=== PATIENT | female | born 1980 | race Caucasian/White ===

== ENCOUNTER 2017-06-08 17:24 | Emergency (ER) | payer OTHER ==
--- NOTE | 2017-06-08 18:03 | RAD ---
CHEST 1 VIEW: Date: 06/08/17 HISTORY: Cough. COMPARISON: None. FINDINGS: There are surgical clips in the mediastinum. There is blunting of the left lateral costophrenic sulcu s. No focal air space consolidation. IMPRESSION: 1. Mild blunting left lateral costophrenic sulcus may be sequelae of small effusion. 2. Postsurgical change of mediastinum. 3. Scarring with bronchiectasis in the left upper lobe. POS: [facility]
== END 2017-06-08 18:59 | disposition home or self-care (01) ==
LOC: ERS 17:24
DX: J20.9 Acute bronchitis, unspecified (principal); E10.9 Type 1 diabetes mellitus without complications; E03.9 Hypothyroidism, unspecified; K21.9 Gastro-esophageal reflux disease without esophagitis; E78.5 Hyperlipidemia, unspecified; J45.909 Unspecified asthma, uncomplicated; F31.9 Bipolar disorder, unspecified; F17.210 Nicotine dependence, cigarettes, uncomplicated; Z85.71 Personal history of Hodgkin lymphoma
CPT/HCPCS: 71010; 93005; 94640; J7620

== ENCOUNTER 2017-11-20 08:35 | Outpatient (CLI) | payer OTHER ==
--- NOTE | 2017-11-20 11:51 | CT ---
ABDOMEN AND PELVIS CT WITH CONTRAST: INDICATIONS: Hernia. FINDINGS: There is a large fat-containing hernia with a relative wide neck, centered at the midline of the vent ral abdomen, near the umbilicus. Slight inflammation of the herniated fat is seen. No herniation of bowel. There is no acute abnormality of the solid abdominal viscera. An exophytic cyst is seen at the medial left kidney. Prior cholecystectomy. There is no evidence of bowel obstruction. There is moderate retained fecal material of the colon. Moderate distention of unopacified urinary bladder i s present. There is heterogeneity of the uterus, which may be physiologic. A peripherally calcified nodule of the right gluteal region, in addition to multiple additional punctate calcific densities o f the gluteal regions bilaterally favor calcified dermal granulomas. There is osseous degenerative c hange, notably at the lumbosacral junction. IMPRESSION: Large, relative wide-necked, fat-containing hernia with mild inflammatory fat stranding, centered at the ventral low abdomen, near the umbilicus. No associated herniation of bowel or associated bowel o bstruction. POS: [facility]
[2017-11-20] MEDS ORDERED: Iopamidol 370 76% 100 ML VIAL ONE (13:21)
== END 2017-11-20 08:36 | disposition home or self-care (01) ==
LOC: CT 08:35
PROVIDERS: ATTEND Surgery
DX: K43.9 Ventral hernia without obstruction or gangrene (principal)
CPT/HCPCS: 74177

== ENCOUNTER 2017-12-05 09:24 | Outpatient (CLI) | payer OTHER ==
[2017-12-05 11:07] LABS: #Basophils 0.1 thou/uL (0.0-0.2); #Eosinphils 0.1 thou/uL (0.0-0.7); #Lymphocytes 2.3 thou/uL (1.20-3.40); #Monocytes 0.5 thou/uL (0.11-0.59); #Neutrophils 7.5 thou/uL (1.40-6.50); %Basophils 0.6 % (0.0-1.0); %Lymphocytes 21.6 % (21.0-51.0); %Monocytes 4.6 % (0.0-10.0); %Neutrophils 72.2 % (42.0-75.0); Hemoglobin 13.1 g/dL (12.0-16.0); Mean Corpuscular HGB CONC 34.5 g/dL (32.0-36.0); Mean Corpuscular Hemoglobin 30.4 pg (27.0-31.0); Mean Corpuscular Volume 88.2 fl (81.0-99.0); Mean Platelet Volume 8.5 fL (7.4-10.4); Platelet Count 279 thou/uL (130-400); RBC Distribution Width 14.7 % (11.5-14.5); White Blood Cell (WBC) Count 10.4 thou/uL (4.8-10.8)
[2017-12-05 11:24] LABS: Anion Gap 8 mmol/L (10-20); BUN (Urea Nitrogen) 10 mg/dL (7.0-18.7); Calc. Creatinine Clearance 0 mL/min (70-130); Calcium 8.8 mg/dL (7.8-10.44); Carbon Dioxide 24 mmol/L (22-29); Chloride 108 mmol/L (98-107); Estimated GFR-MDRD Greater than 90; Glucose 107 mg/dL (70-105); Potassium 3.9 mmol/L (3.5-5.1); Sodium 136 mmol/L (136-145)
== END 2017-12-05 09:25 | disposition home or self-care (01) ==
LOC: LABBT 09:24
PROVIDERS: ATTEND Surgery
DX: Z01.812 Encounter for preprocedural laboratory examination (principal); K43.9 Ventral hernia without obstruction or gangrene
CPT/HCPCS: 80048; 85025

== ENCOUNTER 2017-12-09 09:51 | Day surgery (SDC) | payer OTHER ==
[2017-12-05 09:58] VITALS: BMI 28.5
[~2017-12-09 09:51] MED LIST: Lidocaine 1% PF 5 ML VIAL ONE; Ondansetron HCl/PF 4 MG/2 ML Vial ONE; PROPOFOL 200 MG/20 ML VIAL ONE
[2017-12-09] MEDS ORDERED: methylPREDNISolone Sod Succ/PF 125 MG/2 ML VIAL ONE (10:12)
[2017-12-09] MEDS ORDERED: Albuterol Sulfate 2.5 mg/3 ml Neb NEB SCH (10:30)
[2017-12-09] MEDS ORDERED: Albuterol Sulfate 2.5 mg/3 ml Neb ONE (10:33)
[2017-12-09] MEDS ORDERED: Sodium Chloride 0.9% 10 ML ONE (10:40)
[2017-12-09] MEDS ORDERED: Sodium Chloride 0.9% 0 ML ONE (10:40)
[2017-12-09] MEDS ORDERED: CEFAZOLIN/Water 2 GM/20 ML SYRINGE ONE (11:21)
[2017-12-09] MEDS ORDERED: Fentanyl 100 MCG/2 ML VIAL ONE ×3 (11:34→15:52)
[2017-12-09] MEDS ORDERED: Midazolam HCl 2 mg/2 ml Vial ONE (11:34)
[2017-12-09] MEDS ORDERED: Bupivacaine/Epinephrine 0.25% 30 ML VIAL ONE (11:57)
--- NOTE | 2017-12-14 22:16 | PDOC.OP ---
Operative Note - Operative Note Operative Note: PROCEDURE: Laparoscopic repair of recurrent ventral incisional hernia with mesh DATE OF PROCEDURE: 12/10/27 SURGEON: Jeanine Astudillo M.D. PREOPERATIVE DIAGNOSES: Recurrent ventral incisional hernia, incarcerated POSTOPERATIVE DIAGNOSIS: Recurrent ventral incisional hernia, incarcerated HISTORY: Patient is status post open ventral hernia repair near the umbilicus without mesh at another facility. She presented with recurrent ventral hernia at the site of her previous repair which was only partially reducible. On CT scan this contained only omentum. Recommendation was made to proceed with laparoscopic repair due to recurrent nature of the hernia and concern for adjacent defects due to previous . PROCEDURE IN DETAIL: After informed consent was obtained and appropriate preoperative antibiotics were administered the patient was taken to the operating room she was placed in supine position and general endotracheal anesthesia was administered. She was prepped and draped in a standard sterile fashion and local anesthesia was infused to the skin and subcutaneous tissues in the right subcostal position. The fascia was elevated and a Veress needle placed into the abdominal cavity without difficulty. Opening pressure was less than 5 and current dissected as easily insufflated to an intra-abdominal pressure 15 which the patient tolerated well. The Veress needle was withdrawn and a [place] Belt port advanced under direct laparoscopic vision into the abdominal cavity. The abdominal cavity was carefully examined and no evidence of Veress needle or of trocar injury was seen. The patient was noted to have fairly extensive omental adhesions at the hernia site but no other significant adhesions and no visible bowel near the hernia. Additional dissecting trochars were placed in the left and right lateral abdomen under direct laparoscopic vision and the omental adhesions carefully taken down using LigaSure. The patient was found to have extensive omental adhesions within the hernia sac which were able to be mostly dissected free by inverting the hernia sac. Some of the omentum tore remaining within the hernia sac however. Once all the omental adhesions were taken down from the anterior abdominal wall, the remaining omentum within the hernia sac was moved by dividing the remaining attachments and the devascularized omentum tunneled through the trocar and discarded. The omentum which had been previously in the hernia sac was examined and some areas were found to be devascularized and these were resected and discarded as well. Attention was then turned to repair of the hernia. No other fascial defects were noted in the vicinity of the hernia. The margins of the hernia were marked on the skin and measured. The defect was found to be 5 x 6 cm so an 11 x 14 cm mesh was chosen. Transfascial sutures were placed superiorly inferiorly and each lateral margin. Appropriate placement of mesh was marked on the abdominal wall. One of the 5 mm ports was switched out to a 12 mm port and the mesh was rolled and placed through this into the abdominal cavity. Mesh was then unrolled and carefully positioned with the nonstick surface facing the bowel. GraNee needle was used to draw out the transfascial fixation sutures superiorly, inferiorly and each lateral edge. These were secured and cut. Secure strap was then used to fix the mesh circumferentially with tacks every centimeter. This provided excellent coverage of the hernia. The 12 mm trocar was removed and the fascial defects closed with 0 Vicryl suture on a GraNee needle under direct laparoscopic vision with excellent technical result. The right lower quadrant trocar had been removed and replaced several times during the case and no bleeding had been noted at the site so the laparoscope was moved to this position and the subcostal trocar removed and hemostasis verified. The gas was then allowed to desufflate through the right lower quadrant trocar which was then removed. Additional local anesthesia was infused and 4-0 subcuticular sutures used to close the trocar sites. Dermabond dressings were placed at trocar sites as well as transfascial suture sites. Estimated blood loss was minimal. There were no complications. There were no specimens.
== END 2017-12-09 17:15 | disposition home or self-care (01) ==
LOC: SDC 09:51
PROVIDERS: ATTEND Surgery
PROC: 0WUF4JZ Supplement Abdominal Wall with Synthetic Substitute, Percutaneous Endoscopic Approach (ICD-10-PCS; principal; 2017-12-09)
DX: K43.0 Incisional hernia with obstruction, without gangrene (principal); Z91.040 Latex allergy status; Z91.041 Radiographic dye allergy status; Z88.8 Allergy status to other drugs, medicaments and biological substances; Z98.890 Other specified postprocedural states
CPT/HCPCS: 36416; 94640; 96374; J2001; J2250; J2405; J2704; J2930; J3010; J7611

== ENCOUNTER 2018-01-14 01:43 | Emergency (ER) | payer OTHER ==
[2018-01-14] MEDS ORDERED: Ketorolac Tromethamine 30 MG/ML VIAL ONE (02:41)
[2018-01-14 02:56] LABS: #Basophils 0.1 thou/uL (0.0-0.2); #Eosinphils 0.1 thou/uL (0.0-0.7); #Lymphocytes 3.3 thou/uL (1.20-3.40); #Monocytes 0.8 thou/uL (0.11-0.59); #Neutrophils 9.8 thou/uL (1.40-6.50); %Basophils 0.7 % (0.0-1.0); %Eosinophils 0.9 % (0.0-10.0); %Lymphocytes 23.1 % (21.0-51.0); %Monocytes 5.6 % (0.0-10.0); %Neutrophils 69.7 % (42.0-75.0); Hemoglobin 14.1 g/dL (12.0-16.0); Mean Corpuscular HGB CONC 34.5 g/dL (32.0-36.0); Mean Corpuscular Hemoglobin 29.7 pg (27.0-31.0); Mean Corpuscular Volume 86.1 fL (78.0-98.0); Mean Platelet Volume 8.4 fL (7.4-10.4); Platelet Count 277 thou/uL (130-400); RBC Distribution Width 14.4 % (11.5-14.5); Red Blood Cell (RBC) Count 4.74 mill/uL (4.20-5.40); White Blood Cell (WBC) Count 14.1 thou/uL (4.8-10.8)
[2018-01-14 02:58] LABS: Pregnancy Test - Urine (BHCG) Negative (Negative); Pregu Control Background? CLEAR/WHITE (CLR/WHITE); Pregu Control Bar Appear? YES (CONTROL BAR)
[2018-01-14 02:59] LABS: Bilirubin Negative (Negative); Blood, Urine Small (Negative); Clarity CLEAR (Clear); Glucose, Urine (Dipstick) Negative (Negative); Leukocyte Negative (Negative); Nitrite Negative (Negative); Protein, Urine (Dipstick) Negative (Neg-Trace); Specific Gravity 1.004 (1.002-1.036); Specific Gravity, Urine 1.004 (1.002-1.036); Urobilinogen 0.2 mg/dL (0.2-1.0)
[2018-01-14 03:02] LABS: Pathc Cast-AUWi Flag 0.14 (0-2.49)
[2018-01-14] MEDS ORDERED: methylPREDNISolone Sod Succ/PF 125 MG/2 ML VIAL ONE (03:12)
[2018-01-14] MEDS ORDERED: diphenhydrAMINE 50 MG/ML VIAL ONE (03:12)
[2018-01-14] MEDS ORDERED: Famotidine/PF 20 mg/2ml Vial SLOW IVP SCH (03:15)
[2018-01-14 03:21] LABS: ALT (SGPT) 12 U/L (8-55); AST (SGOT) 15 U/L (5-34); Albumin 4.6 g/dL (3.5-5.0); Alkaline Phosphatase 96 U/L (40-150); Anion Gap 14 mmol/L (10-20); BUN (Urea Nitrogen) 6 mg/dL (7.0-18.7); Bacteria/HPF Rare-Few HPF (None Seen); Bilirubin, Total 0.6 mg/dL (0.2-1.2); Calc. Creatinine Clearance 0 mL/min (70-130); Calcium 10.2 mg/dL (7.8-10.44); Carbon Dioxide 25 mmol/L (22-29); Chloride 98 mmol/L (98-107); Estimated GFR-MDRD 79; Globulin 4.1 g/dL (2.4-3.5); Glucose 117 mg/dL (70-105); Hyaline Casts/LPF NONE SEEN LPF (0-3 Hyaline); Lipase 64 U/L (8-78); Potassium 3.1 mmol/L (3.5-5.1); Protein, Total 8.7 g/dL (6.0-8.3); RBC/HPF 0-3 HPF (0-3); Sodium 134 mmol/L (136-145); Squamous Epithelial 0-3 HPF (0-3); WBC/HPF 0-3 HPF (0-3)
[2018-01-14] MEDS ORDERED: Ondansetron ODT 8 MG TAB ONE (03:48)
[2018-01-14] MEDS ORDERED: Fentanyl 100 MCG/2 ML VIAL ONE (06:46)
--- NOTE | 2018-01-14 08:31 | ULT ---
PRELIMINARY REPORT/[facility]/EM[facility] AFTER-HOURS PROCEDURE US Pelvis Complete, Transabdominal CLINICAL HISTORY: 37 years old, female; Signs and symptoms; Other: Spotty hematuria; Patient HX: HX: Irregular periods, HX: Lymphoma TECHNIQUE: Real-time transabdominal pelvic ultrasound (complete) with image documentation. COMPARISON: No relevant prior studies available. FINDINGS: The uterus measures 7.5 cm in length. There is no visible focal uterine mass. There is no intrauterine fluid. Endometrium appears mildly thickened, measuring up to 15 mm. There is no free pelvic fluid. The right ovary is enlarged, measuring 69 x 24 x 26 mm. There are two relatively simple appearing cysts involving the right ovary, measuring 32 x 23 x 31 mm, and 25 x 15 x 19 mm. These may still represent physiologic cysts, other etiologies are not excluded. As clinically directed, follow up in one to three months may be useful to evaluate for resolution of a physiologic cyst, and to guard against a persistent/enlarging lesion/neoplasm. Blood flow detected in the right ovary. The left ovary was not visualized at this time. The urinary bladder was not completely evaluated/imaged at this time. IMPRESSION: Two relatively simple appearing cysts involving the right ovary, see above discussion. Mildly thicken ed endometrium, details above. Other details discussed above. US Pelvis, Transvaginal TECHNIQUE: Real-time transvaginal pelvic ultrasound (complete) with image documentation. Transvaginal imaging wa s used for better evaluation of the endometrium and adnexa. COMPARISON: No relevant prior studies available. FINDINGS: The uterus measures 7.5 cm in length. There is no visible focal uterine mass. There is no intrauterine fluid. Endometrium appears mildly thickened, measuring up to 15 mm. There is no free pelvic fluid. The right ovary is enlarged, measuring 69 x 24 x 26 mm. There are two relatively simple appearing cysts involving the right ovary, measuring 32 x 23 x 31 mm, and 25 x 15 x 19 mm. These may still represent physiologic cysts, other etiologies are not excluded. As clinically directed, follow up in one to three months may be useful to evaluate for resolution of a physiologic cyst, and to guard against a persistent/enlarging lesion/neoplasm. Blood flow detected in the right ovary. The left ovary was not visualized at this time. The urinary bladder was not completely evaluated/imaged at this time. Endovaginal scanning provided better visualization/evaluation of the endometrium and ovarian/adnexal findings as discussed above. IMPRESSION: Two relatively simple appearing cysts involving the right ovary, see above discussion. Mildly thickened endometrium, details above. Other details discussed above. Thank you for allowing us to participate in the care of your patient. Dictated and Authenticated by: Hiram Silverio MD 01/14/2018 7:18 AM Central Time ([place] & [place]) PELVIC ULTRASOUND: Transabdominal and endovaginal ultrasound of pelvis performed. INDICATION: Hematuria. CT abdomen and pelvis performed earlier this morning revealed cystic mass in the right ad nexa. FINDINGS: Uterus has a normal size and appearance. The endometrial stripe is mildly prominent measured at 1.4 cm. There are at least 2 cysts in the right ovary, the largest measuring up to 3 cm and a smaller me asuring up to 2.5 cm. Color Doppler with spectral analysis demonstrates blood flow to the right ovar y. The left ovary is not visualized. IMPRESSION: 1. Thickened endometrium. 2. Two prominent right ovarian cysts. 3. The left ovary is not identified. Agree with preliminary report. POS: [facility]
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
[2018-01-14] MEDS ORDERED: ISOVUE-370 76%-LOCM 1 ML ONE (09:56)
[2018-01-14 23:43] LABS: Chlamydia by PCR Not Detected (NotDetected); GC by PCR Not Detected (NotDetected)
== END 2018-01-14 09:04 | disposition home or self-care (01) ==
LOC: ERS 01:43
DX: N76.0 Acute vaginitis (principal); E10.9 Type 1 diabetes mellitus without complications; E03.9 Hypothyroidism, unspecified; K21.9 Gastro-esophageal reflux disease without esophagitis; E78.5 Hyperlipidemia, unspecified; J45.909 Unspecified asthma, uncomplicated; G43.909 Migraine, unspecified, not intractable, without status migrainosus; F31.9 Bipolar disorder, unspecified; F17.210 Nicotine dependence, cigarettes, uncomplicated; Z79.899 Other long term (current) drug therapy
CPT/HCPCS: 70450; 70486; 74177; 76856; 80053; 81003; 81015; 81025; 82010; 83690; 85025; 87480; 87491; 87510; 87591; 87660; 94640; 96361; 96374; 96375; 96376; J1200; J1885; J2270; J2930; J3010; J7620; S0028

== ENCOUNTER 2018-05-29 09:29 | Outpatient (CLI) | payer OTHER | END 2018-05-29 09:30 | disposition home or self-care (01) | LOC: CTENTCT 09:29 | PROVIDERS: ATTEND Specialist | DX: J32.9 Chronic sinusitis, unspecified (principal) | CPT/HCPCS: 70486 ==

== ENCOUNTER 2018-06-04 10:19 | Emergency (ER) | payer OTHER ==
--- NOTE | 2018-06-04 11:58 | RAD ---
CHEST 2 VIEWS: HISTORY: Cough x 2 weeks. Bronchitis. COMPARISON: 09/18/2017. FINDINGS: Normal cardiac silhouette. The pulmonary vessels and hilum are normal. Costophrenic angles are jordon r. No consolidation or masses. No pneumothorax or osseous abnormalities. IMPRESSION: No acute cardiopulmonary process. POS: [facility]
== END 2018-06-04 11:36 | disposition home or self-care (01) ==
LOC: ERS 10:19
DX: E03.9 Hypothyroidism, unspecified (principal); J20.9 Acute bronchitis, unspecified; K21.9 Gastro-esophageal reflux disease without esophagitis; G43.909 Migraine, unspecified, not intractable, without status migrainosus; F60.3 Borderline personality disorder; Z87.891 Personal history of nicotine dependence; Z71.6 Tobacco abuse counseling; Z79.899 Other long term (current) drug therapy; Z79.4 Long term (current) use of insulin
CPT/HCPCS: 71046; 94640; 99406; J7620

== ENCOUNTER 2018-06-08 21:06 | Emergency (ER) | payer OTHER ==
[2018-06-08 23:32] LABS: Hemoglobin 14.9 g/dL (12.0-16.0); Lymphocytes 21 % (21-51); MDiff Complete? YES; Mean Corpuscular HGB CONC 33.6 g/dL (32.0-36.0); Mean Corpuscular Hemoglobin 29.1 pg (27.0-31.0); Mean Corpuscular Volume 86.6 fL (78.0-98.0); Monocytes 5 % (0-10); Neutrophil 74 % (42-75); PLT Morphology Comment Appears Adequate; Platelet Count 302 thou/uL (130-400); Red Blood Cell (RBC) Count 5.13 mill/uL (4.20-5.40); White Blood Cell (WBC) Count 20.1 thou/uL (4.8-10.8)
[2018-06-08 23:35] LABS: ALT (SGPT) 16 U/L (8-55); AST (SGOT) 13 U/L (5-34); Albumin 4.3 g/dL (3.5-5.0); Alkaline Phosphatase 66 U/L (40-150); Anion Gap 14 mmol/L (10-20); BUN (Urea Nitrogen) 20 mg/dL (7.0-18.7); Bilirubin, Total 0.3 mg/dL (0.2-1.2); Calc. Creatinine Clearance 0 mL/min (70-130); Calcium 9.6 mg/dL (7.8-10.44); Carbon Dioxide 22 mmol/L (22-29); Chloride 104 mmol/L (98-107); Estimated GFR-MDRD 54; Glucose 160 mg/dL (70-105); Protein, Total 7.3 g/dL (6.0-8.3); Sodium 137 mmol/L (136-145)
[2018-06-08 23:38] LABS: CKMB 1.2 ng/mL (0-6.6); Troponin I Less than 0.010 ng/mL (< 0.028)
[2018-06-09 00:17] LABS: Potassium 2.8 mmol/L (3.5-5.1)
[2018-06-09] MEDS ORDERED: Potassium Chloride 20 MEQ TAB ONE (00:19)
[2018-06-09 00:26] LABS: Bilirubin Negative (Negative); Blood, Urine Trace (Negative); Glucose, Urine (Dipstick) Negative (Negative); Leukocyte Negative (Negative); Nitrite Negative (Negative); Protein, Urine (Dipstick) Trace mg/dL (Neg-Trace); Specific Gravity, Urine 1.025 (1.005-1.030); Urobilinogen 0.2 mg/dL (0.2-1.0); pH, Urine 5.5 (5.0-9.0)
[2018-06-09 00:27] LABS: Clarity Clear (Clear)
[2018-06-09 00:47] LABS: Bacteria/HPF Rare-Few HPF (None Seen); Hyaline Casts/LPF 0-3 HYALINE CAST LPF (0-3 Hyaline); RBC/HPF 0-3 HPF (0-3); Squamous Epithelial 0-3 HPF (0-3); WBC/HPF 0-3 HPF (0-3)
--- NOTE | 2018-06-09 08:23 | RAD ---
FRONTAL VIEW CHEST: COMPARISON: 09/18/2017. INDICATION: Leukocytosis. FINDINGS: No consolidation, effusion, or pneumothorax, The cardiac silhouette is normal in size. Exam is stab le-appearing. IMPRESSION: No focal consolidation. POS: [facility]
== END 2018-06-09 01:21 | disposition home or self-care (01) ==
LOC: ERS 21:06
DX: E10.65 Type 1 diabetes mellitus with hyperglycemia (principal); E03.9 Hypothyroidism, unspecified; K21.9 Gastro-esophageal reflux disease without esophagitis; J45.909 Unspecified asthma, uncomplicated; G43.909 Migraine, unspecified, not intractable, without status migrainosus; F31.9 Bipolar disorder, unspecified; F60.3 Borderline personality disorder; Z87.891 Personal history of nicotine dependence; Z79.899 Other long term (current) drug therapy
CPT/HCPCS: 36415; 36416; 71045; 80053; 81003; 81015; 82553; 84484; 85025; 87086; 93005; 96360

== ENCOUNTER 2018-06-18 08:40 | Day surgery (SDC) | payer OTHER ==
[2018-06-17 11:21] VITALS: BMI 27.3
[2018-06-18] MEDS ORDERED: Oxymetazoline HCl 0.05% ( 15 ML ) ONE ×3 (09:41→11:32)
[2018-06-18] MEDS ORDERED: Lidocaine 1% w/Epinephrine 1:100K 30 ML VIAL ONE (11:31)
[2018-06-18] MEDS ORDERED: Bacitracin Zinc Ointment 30 gm TUBE ONE (11:31)
[2018-06-18] MEDS ORDERED: Ondansetron PF 4 MG/2 ML Vial ONE (11:59)
[2018-06-18] MEDS ORDERED: PROPOFOL 200 MG/20 ML VIAL ONE (11:59)
[2018-06-18] MEDS ORDERED: PHENYLEPHRINE-NS 100 MCG/ML 10 ML SYRINGE ONE ×2 (11:59→12:53)
[2018-06-18] MEDS ORDERED: Dexamethasone 20 MG/5 ML VIAL ONE (11:59)
[2018-06-18] MEDS ORDERED: Lidocaine 1% PF 5 ML VIAL ONE (11:59)
[2018-06-18] MEDS ORDERED: Glycopyrrolate 0.2 MG/ML 5 ML SYRINGE ONE (11:59)
[2018-06-18] MEDS ORDERED: Fentanyl 100 MCG/2 ML VIAL ONE ×2 (12:15→14:04)
[2018-06-18] MEDS ORDERED: HYDROcodone/Acetaminophen 5/325 mg Tablet ONE (14:56)
--- NOTE | 2018-06-24 11:54 | OP ---
DATE OF PROCEDURE: 06/18/2018 PREOPERATIVE DIAGNOSES: Bilateral chronic sinusitis, deviated septum, hypertrophied inferior turbinates, bilateral makeda bullosa. POSTOPERATIVE DIAGNOSES: Bilateral chronic sinusitis, deviated septum, hypertrophied inferior turbinates, bilateral makeda bullosa. PROCEDURES PERFORMED: Bilateral nasal endoscopy with maxillary antrostomy with removal of tissue, bilateral nasal endoscopy with total ethmoidectomy, bilateral nasal endoscopy with frontal sinusotomy, bilateral nasal endoscopy with sphenoidotomy, bilateral nasal endoscopy with resection of makeda bullosa, bilateral nasal endoscopy with submucous resection of inferior turbinates, and septoplasty. DESCRIPTION OF PROCEDURE: After consent was obtained, the patient was identified, brought to the operating room, and placed on the operating room table in the supine position. Consent was obtained, notifying the patient of the possibility of additional infections, bleeding, brain injury, and eye/orbital injury. The patient was placed on the operating room table, and general endotracheal anesthesia and intravenous access was obtained. The patient was then positioned, prepped and draped for endoscopic sinus surgery. Nasal preparation included trimming nasal vestibular hairs and spraying in topical Afrin. We then placed Afrin topical solution on nasal pledgets and strategically located them intranasally. The perinasal mucosa was injected with 1% lidocaine with 1:100,000 epinephrine in the submucoperichondrial plane of the septum, lateral nasal wall, and anterior to the uncinate. The patient was then prepped and draped in a sterile fashion and positioned for endoscopic sinus surgery. With the 0-degree endoscope, the patient underwent systematic nasal endoscopy. There were no suspicious internasal masses or lesions identified. We then focused our attention to the osteomeatal complex region under the middle turbinate. The uncinate was then identified and the extent of the uncinate was appreciated by out-fracturing the uncinate with the ball-tip probe. We then used the sickle blade to disarticulate the uncinate from the lateral nasal wall. This was then removed with straight biting and upbiting punches with the remaining shrouds of mucosa and bony septum removed with the micro-debrider. The natural os of the maxillary sinus was then identified and enlarged with the maxillary punches and back biting forceps. At this point, we then turned our attention to the contralateral side and proceeded with endoscopic sinus surgery. The anterior face of the ethmoid bulla was entered and with the micro-debrider, dissection continued posteriorly to the ground lamella. The limits of dissection included the insertion of the middle turbinate, medial orbital wall, and base of skull. We similarly identified the frontal recess and removed shrouds of bone and debris in that region to obtain patency into the agger nasi region and frontal recess. We then entered the ground lamella and its anteroinferior aspect and proceeded posteriorly, opening the posterior ethmoid air-cell system. Again, the limits of dissection included the base of skull and medial orbital wall. At this point, we then turned our attention to the contralateral side and proceeded with endoscopic sinus surgery. The anterior face of the sphenoid was identified and entered in its extreme anteroinferior aspect. A sphenoid punch was then used to enlarge the sphenoidotomy and no injury to the optic nerve or internal carotid artery occurred. At this point, we then turned our attention to the contralateral side and proceeded with endoscopic sinus surgery. The inferior turbinates were visualized with a 0-degree endoscope and outfractured with a Dhruv elevator. The inferior medial aspect was cauterized with the electrocautery. Hemostasis was obtained . After adequate airway was established, we turned our attention to the contralateral side and used a similar procedure. Again, a Brigantine elevator was used to outfracture inferior turbinates under endoscopic visualization. With a suction cautery, the free inferior medial aspect was cauterized under direct visualization along the length of the inferior turbinate. At this point, we then turned our attention to the contralateral side and proceeded with endoscopic sinus surgery. After local anesthesia was infiltrated into the submucoperichondrial plane, a standard Arion incision was made with a #15 blade down to the level of the septal cartilage. The caudal elevator was used to elevate the mucoperichondrium from the underlying cartilage. We then proceeded beyond the bony cartilaginous junction and elevated the bony periosteum as well. Great attention was paid to the spur to prevent rent formation in the septal flap. A transcartilaginous incision was then made, while preserving an adequate dorsal and caudal cartilaginous strut for tip support. The deformed cartilage was removed and disarticulated from the bony cartilaginous junction and maxillary crest. This was placed in saline and would later be crushed and returned to the mucoperichondrial envelope. We then elevated the contralateral periosteum from the bony cartilaginous region and removed the deformed portions of the bone and bony spurs. The cartilage was then crushed and placed back into the mucoperichondrial envelope and the mucosa was re-approximated with a quilting stitch composed of rapidly absorbent gut suture. The Burt incision was also closed with interrupted gut suture. At the completion of the case, Vargas splints were placed and suture secured to the caudal septum. At this point, we then turned our attention to the contralateral side and proceeded with endoscopic sinus surgery. At the completion of the case, Rice keel splints were placed in the ethmoid cavities after the ethmoidectomy. There were no complications. The patient tolerated the procedure well and was discharged to the recovery room in stable condition prior to return to the preoperative Day Stay with ultimate discharge home. Prescriptions for pain medication and antibiotics were provided. The patient received intramuscular Depo-Medrol during the case. Job ID: [id number]
== END 2018-06-18 15:50 | disposition home or self-care (01) ==
LOC: SDC 08:40
PROVIDERS: ATTEND Specialist
PROC: 09SM0ZZ Reposition Nasal Septum, Open Approach (ICD-10-PCS; principal; 2018-06-18)
PROC: 099X8ZZ Drainage of Left Sphenoid Sinus, Via Natural or Artificial Opening Endoscopic (ICD-10-PCS; principal; 2018-06-18)
PROC: 099S8ZZ Drainage of Right Frontal Sinus, Via Natural or Artificial Opening Endoscopic (ICD-10-PCS; principal; 2018-06-18)
PROC: 09TU8ZZ Resection of Right Ethmoid Sinus, Via Natural or Artificial Opening Endoscopic (ICD-10-PCS; principal; 2018-06-18)
PROC: 09TL8ZZ Resection of Nasal Turbinate, Via Natural or Artificial Opening Endoscopic (ICD-10-PCS; principal; 2018-06-18)
PROC: 09SL8ZZ Reposition Nasal Turbinate, Via Natural or Artificial Opening Endoscopic (ICD-10-PCS; principal; 2018-06-18)
PROC: 09BR8ZZ Excision of Left Maxillary Sinus, Via Natural or Artificial Opening Endoscopic (ICD-10-PCS; principal; 2018-06-18)
PROC: 099W8ZZ Drainage of Right Sphenoid Sinus, Via Natural or Artificial Opening Endoscopic (ICD-10-PCS; principal; 2018-06-18)
PROC: 09BQ8ZZ Excision of Right Maxillary Sinus, Via Natural or Artificial Opening Endoscopic (ICD-10-PCS; principal; 2018-06-18)
PROC: 09TV8ZZ Resection of Left Ethmoid Sinus, Via Natural or Artificial Opening Endoscopic (ICD-10-PCS; principal; 2018-06-18)
PROC: 099T8ZZ Drainage of Left Frontal Sinus, Via Natural or Artificial Opening Endoscopic (ICD-10-PCS; principal; 2018-06-18)
DX: J32.4 Chronic pansinusitis (principal); J34.2 Deviated nasal septum; J34.3 Hypertrophy of nasal turbinates; J34.89 Other specified disorders of nose and nasal sinuses; Z79.4 Long term (current) use of insulin; Z79.51 Long term (current) use of inhaled steroids; Z79.899 Other long term (current) drug therapy; Z88.8 Allergy status to other drugs, medicaments and biological substances; Z91.040 Latex allergy status; Z91.041 Radiographic dye allergy status
CPT/HCPCS: 36416; 85014; 96374; J1100; J2001; J2405; J2704; J3010

== ENCOUNTER 2018-07-13 13:10 | Emergency (ER) | payer OTHER ==
[2018-07-13] MEDS ORDERED: Lorazepam 1 MG TAB ONE (13:23)
[2018-07-13] MEDS ORDERED: Acetaminophen/Codeine 30-300mg Tablet ONE (14:22)
--- NOTE | 2018-07-13 14:33 | RAD ---
PORTABLE FRONTAL CHEST RADIOGRAPH: Date: 07/13/18 COMPARISON: 06/08/18 and 06/08/17. HISTORY: Anxiety, dyspnea, productive cough. FINDINGS: No pneumothorax, pleural fluid, focal consolidation, or alveolar edema. Stable apical pleural thicken ing on the left. Stable postoperative clips in the left hilar region. IMPRESSION: Stable appearance of the chest. No acute findings. POS: [facility]
== END 2018-07-13 14:51 | disposition home or self-care (01) ==
LOC: ERS 13:10
DX: J20.9 Acute bronchitis, unspecified (principal); E10.9 Type 1 diabetes mellitus without complications; E03.9 Hypothyroidism, unspecified; F31.9 Bipolar disorder, unspecified; F41.9 Anxiety disorder, unspecified; J45.909 Unspecified asthma, uncomplicated; F17.210 Nicotine dependence, cigarettes, uncomplicated; K21.9 Gastro-esophageal reflux disease without esophagitis; G43.909 Migraine, unspecified, not intractable, without status migrainosus; Z85.72 Personal history of non-Hodgkin lymphomas; Z79.899 Other long term (current) drug therapy
CPT/HCPCS: 71045; 93005

== ENCOUNTER 2018-08-21 17:21 | Emergency (ER) | payer OTHER ==
[2018-08-21] MEDS ORDERED: Acetaminophen 325 MG TAB ONE (18:38)
[2018-08-21 18:54] LABS: #Basophils 0.1 thou/uL (0.0-0.2); #Eosinphils 0.1 thou/uL (0.0-0.7); #Monocytes 0.9 thou/uL (0.11-0.59); #Neutrophils 13.1 thou/uL (1.40-6.50); %Basophils 0.5 % (0.0-1.0); %Eosinophils 0.3 % (0.0-10.0); %Lymphocytes 17.7 % (21.0-51.0); %Monocytes 5.2 % (0.0-10.0); %Neutrophils 76.3 % (42.0-75.0); Hemoglobin 15.2 g/dL (12.0-16.0); Mean Corpuscular HGB CONC 33.5 g/dL (32.0-36.0); Mean Corpuscular Hemoglobin 28.3 pg (27.0-31.0); Mean Corpuscular Volume 84.2 fL (78.0-98.0); Mean Platelet Volume 8.8 fL (7.4-10.4); Platelet Count 309 thou/uL (130-400); RBC Distribution Width 14.6 % (11.5-14.5); White Blood Cell (WBC) Count 17.2 thou/uL (4.8-10.8)
[2018-08-21 19:15] LABS: ALT (SGPT) 10 U/L (8-55); AST (SGOT) 15 U/L (5-34); Albumin 4.9 g/dL (3.5-5.0); Alkaline Phosphatase 96 U/L (40-150); Anion Gap 14 mmol/L (10-20); BUN (Urea Nitrogen) 9 mg/dL (7.0-18.7); Bilirubin, Total 0.4 mg/dL (0.2-1.2); CK (CPK) 29 U/L (29-168); Calc. Creatinine Clearance 0 mL/min (70-130); Calcium 11.1 mg/dL (7.8-10.44); Carbon Dioxide 25 mmol/L (22-29); Chloride 100 mmol/L (98-107); Estimated GFR-MDRD 75; Globulin 3.8 g/dL (2.4-3.5); Glucose 102 mg/dL (70-105); Potassium 3.8 mmol/L (3.5-5.1); Protein, Total 8.7 g/dL (6.0-8.3); Sodium 135 mmol/L (136-145)
--- NOTE | 2018-08-21 20:11 | RAD ---
CHEST TWO views: 08/21/18 HISTORY: Cough. COMPARISON: 06/04/18 and 07/13/18. FINDINGS: Postoperative changes in the anterior mediastinum region. Left apical pleural thickening, stable. Mil d chronic changes in the right upper lobe. IMPRESSION: Stable bilateral chronic lung changes with prominent left apical pleural thickening. No new process. No evidence for pneumonia. Stable from prior studies. POS: [facility]
[2018-08-21] MEDS ORDERED: Ondansetron PF 4 MG/2 ML Vial ONE (20:18)
[2018-08-21 21:04] LABS: Bilirubin Negative (Negative); Blood, Urine Negative (Negative); Clarity CLOUDY (Clear); Glucose, Urine (Dipstick) Negative (Negative); Leukocyte Trace (Negative); Nitrite Negative (Negative); Protein, Urine (Dipstick) Negative (Neg-Trace); Specific Gravity, Urine 1.004 (1.002-1.036); Urobilinogen 0.2 mg/dL (0.2-1.0)
[2018-08-21 21:06] LABS: Bacteria/HPF 2+ HPF (None Seen); Hyaline Casts/LPF 0-3 HYALINE CAST LPF (0-3 Hyaline); Pathc Cast-AUWi Flag 0.72 (0-2.49); RBC/HPF 0-3 HPF (0-3)
[2018-08-21] MEDS ORDERED: cefTRIAXone\\ROCEPHIN 1 GM VIAL ONE (21:34)
== END 2018-08-21 21:43 | disposition home or self-care (01) ==
LOC: ERS 17:21
DX: E10.9 Type 1 diabetes mellitus without complications (principal); N39.0 Urinary tract infection, site not specified; E03.9 Hypothyroidism, unspecified; F41.9 Anxiety disorder, unspecified; F31.9 Bipolar disorder, unspecified; F60.3 Borderline personality disorder; F17.210 Nicotine dependence, cigarettes, uncomplicated; J44.9 Chronic obstructive pulmonary disease, unspecified; G43.909 Migraine, unspecified, not intractable, without status migrainosus; Z79.51 Long term (current) use of inhaled steroids; Z79.899 Other long term (current) drug therapy
CPT/HCPCS: 71046; 80053; 81003; 81015; 82550; 84443; 85025; 93005; 96361; 96374; 96375; J0696; J2405